=== PATIENT | female | born 1990 | race Caucasian/White ===

== ENCOUNTER 2018-10-20 00:25 | Emergency (ER) | payer SELFPAY ==
[2018-10-20 00:28] VITALS: BP 105/51; PULSE 92; RESP 18; TEMP 37.9; O2SAT 99; BMI 23.5
--- NOTE | 2018-10-20 01:07 | ED_ITS ---
HPI - URI/Sore Throat General Chief Complaint: Upper Respiratory Symptoms Stated Complaint: THROAT SWOLLEN/DIFF. BREATHING/FEVER Time Seen by Provider: 10/20/18 01:06 Source: patient Mode of arrival: ambulatory Limitations: no limitations History of Present Illness HPI Narrative: Patient is a 28-year-old female who is currently . She is not having any abdominal pain or vaginal bleeding. She is having a sore throat. And sinus congestion. This has been going on for the past day or so. Also having subjective fevers. No cough. Related Data Previous Rx's Medication Instructions Recorded amoxicillin-pot clavulanate 875 mg PO BID #20 tab 08/26/17 [Augmentin] Allergies Allergy/AdvReac Type Severity Reaction Status Date / Time No Known Drug Allergies Allergy Verified 10/20/18 01:32 Review of Systems ENT Ears, Nose, Mouth, and Throat: Reports change in voice, Reports sinus pressure and Reports sore throat Cardiovascular Denies chest pain Respiratory Denies cough Integumentary/Breasts Denies rash Hematologic/Lymphatic Denies easy bleeding and Denies easy bruising [facility] Medical History Healthy adult (Acute) Social History Smoking Status: Never smoker Social History Smoking Status: Never smoker Exam Initial Vital Signs Initial Vital Signs: Vital Signs Temperature 100.2 F H 10/20/18 00:28 Pulse Rate 92 H 10/20/18 00:28 Respiratory Rate 18 10/20/18 00:28 Blood Pressure 105/51 L 10/20/18 00:28 Pulse Oximetry 99 10/20/18 00:28 Const General: cooperative, well developed, well groomed and No acute distress Orientation: alert, awake and oriented x3 HENMT Head: normal to inspection and normocephalic Ears: TM's normal bilaterally Nose: external nose normal Face and sinus: normal facial exam Mouth: oral mucosae normal Throat: uvula midline and other (Exudates) Resp Effort & Inspection: normal respiratory effort Auscultation: clear to auscultation bilaterally Cardio Rate: regular rate Rhythm: regular rhythm Skin Lesions: no lesions Rashes: no rashes Neuro General: alert, awake and oriented x3 Extrem General: normal to inspection and capillary refill normal Course Orders Ordered: ED Orders 10/20/18 00:33 Strep Grp A by PCR Rapid Stat Discontinued Medications Penicillin G Benzathine (Bicillin L-A) 1,200,000 unit IM NOW ONE Stop: 10/20/18 01:33 Last Admin: 10/20/18 01:48 Dose: 1,200,000 unit Vital Signs - 8 hr 10/20/18 00:28 10/20/18 02:11 Temperature 100.2 F H Pulse Rate 92 H 93 H Respiratory Rate 18 18 Blood Pressure 105/51 L 100/58 L Pulse Oximetry 99 99 MDM - URI/Sore Throat Lab Data Attestation: I reviewed the patient's lab results. Lab Results 10/20/18 Range/Units 00:33 Group A Strep (PCR) Positive H MDM Narrative Medical decision making narrative: Patient is strep positive which is consistent with her symptoms. Gave her the option of oral antibiotics versus an intramuscular injection. She decided on an intramuscular injection. She is not in any respiratory distress. she is given return precautions and follow-up instructions. She expressed understanding and agreement with plan. Discharge Plan Departure Patient Disposition: Home Clinical Impression: Pharyngitis Qualifiers: Pharyngitis/tonsillitis etiology: streptococcus Qualified Code(s): J02.0 - Streptococcal pharyngitis Discharge Date/Time: 10/20/18 02:12 Interventions: ED Discharge Assessment Last Done: 10/20/18 02:11 Instructions: DI for Strep Throat Activity Restrictions/Additional Instructions: Continue to increase your fluid intake. Contact your primary doctor for a follow-up. Return to the emergency department for any new or worsening symptoms Prescriptions: No Action amoxicillin-pot clavulanate [Augmentin] 875 MG/125 MG tablet 875 mg PO BID Qty: 20 RF: 0
[2018-10-20 01:21] LABS: Strep Grp A by PCR Rapid Positive
[2018-10-20] MEDS: PENICILLIN G BENZATHINE 1,200,000 UNIT/2 ML SYRINGE 1200000 UNIT IM (01:48)
[2018-10-20 02:11] VITALS: BP 100/58; PULSE 93; RESP 18; O2SAT 99
== END 2018-10-20 02:12 | disposition home or self-care (01) ==
PROVIDERS: Emergency Provider Emergency Medicine
DX: J02.0 Streptococcal pharyngitis (principal)
CPT/HCPCS: 87651; 96372; 99282; 99283; J0561

== ENCOUNTER → 2023-07-13 09:01 | Outpatient (CLI) | payer SELFPAY ==
--- NOTE | 2023-07-13 09:06 | DI.US.S_ITS ---
PROCEDURE: US OB >= 14 WEEKS FETUS INDICATIONS: ANATOMY SCAN OUTSIDE/PRIOR DATING DATA: Last menstrual period (LMP): On no. LMP-based estimated date of delivery (MEGAN): Unknown. First dating scan (date and location): Unknown. Estimated date of delivery (MEGAN) from first dating scan: 11/26/2023. The calculations are made using the MEGAN of 11/26/2023. TECHNIQUE: Real-time scanning was performed of the fetus, with image documentation and biometric measurements. COMPARISON: None. FINDINGS: General: A single living intrauterine gestation is present. Presentation: Transverse. Placenta: Placental position is posterior , without previa. Amniotic fluid index: 14 cm, normal range is 5-24 cm. Single deepest vertical pocket is 5 point cm. heart rate: 130 beats per minute. Maternal cervical canal: 0.3 cm long. Normal lower limit is 2.5 cm. biometrics: Biparietal diameter: 0.7 cm 20 weeks 2 days Head circumference: 18.1 cm 20 weeks 4 days Abdominal circumference: 16.7 cm 21 weeks 5 days Femur length: 3.6 cm 21 weeks 2 days Clinically estimated gestational age: 20 weeks 4 days Composite gestational age from present scan: 21 weeks 0 days Estimated weight and percentile: 419 g, 86 Anatomic survey: Neuro: Ventricles are non-dilated at less than 10 mm. Cisterna magna is normal at 3-11 mm. Cerebellum is normal in size and morphology. Nuchal skin fold: Normal at less than 6 mm between 14-21 weeks gestational age. Face: Nose and lips, facial profile are normal. Spine: No evidence for spina bifida. Heart: 4-chambered heart is present, with normal ventricular outflow tracts. Diaphragm: Diaphragm is intact. Stomach: Left-sided stomach is present. Kidneys: No hydronephrosis. Normal is less than 5 mm in 2nd trimester, less than 7 mm in 3rd trimester. Cord: 3-vessel cord has orthotopic insertion. Bladder: Normal in size. Extremities: All 4 extremities identified. IMPRESSION: Single live intrauterine with ultrasound gestational age today 21 weeks 0 days. Anatomy is within normal limits. We strive to produce accurate, complete, and clear reports of imaging services. To assist us in improving patient care, this report was composed using standard report templates and voice recognition software. Therefore, it may contain abnormal punctuation, insertions and/or omissions. Occasional wrong-word or sound-alike substitutions may occur. Though we review the report and make efforts to correct it, we do recommend that the report be read carefully in proper context to recognize any text inaccuracies. Dictated by: Saumya Jin M.D. on 07/13/2023 at 21:02 Approved by: Saumya Jin M.D. on 07/13/2023 at 21:04
== END ==
LOC: US 09:05
PROVIDERS: Referring Provider Midwife; Visit Provider Midwife
DX: Z34.82 Encounter for supervision of other normal pregnancy, second trimester (principal); Z3A.21 21 weeks gestation of pregnancy
CPT/HCPCS: 76811

== ENCOUNTER → 2024-11-15 12:00 | Outpatient (CLI) | payer SELFPAY ==
--- NOTE | 2024-11-15 12:03 | DI.US.S_ITS ---
PROCEDURE: US OB >= 14 WEEKS FETUS INDICATIONS: 20 WEEK ANATOMY SCAN OUTSIDE/PRIOR DATING DATA: Last menstrual period (LMP): 06/02/24. LMP-based estimated date of delivery (MEGAN): 03/09/25. First dating scan (date and location): This study. Estimated date of delivery (MEGAN) from first dating scan: 03/10/25. TECHNIQUE: Real-time scanning was performed of the fetus, with image documentation and biometric measurements. Endovaginal scanning: Not needed COMPARISON: [facility], OB >= 14 WEEKS FETUS, 07/13/2023, 9:19. FINDINGS: General: A single living intrauterine gestation is present. Presentation: Transverse head left. Placenta: Placental position is posterior , without previa. Amniotic fluid index: 16.4 cm, normal range is 5-24 cm. Single deepest vertical pocket is 4.9 cm. heart rate: 167 beats per minute. Maternal cervical canal: 4.7 cm long. Normal lower limit is 2.5 cm. biometrics: Biparietal diameter: 5.7 cm, 23 weeks 3 days Head circumference: 21.8 cm, 23 weeks 6 days Abdominal circumference: 19.1 cm, 23 weeks 6 days Femur length: 4.1 cm, 23 weeks 1 day Clinically estimated gestational age: 23 weeks 5 days Composite gestational age from present scan: 23 weeks 4 days Estimated weight and percentile: 605 g, 34th percentile. Anatomic survey: Neuro: Ventricles are non-dilated at less than 10 mm. Cisterna magna is normal at 3-11 mm. Cerebellum is normal in size and morphology. Nuchal skin fold: Normal at less than 6 mm between 14-21 weeks gestational age. Face: Nose and lips, facial profile are normal. Spine: No evidence for spina bifida. Heart: 4-chambered heart is present, with normal ventricular outflow tracts, 3 mm left ventricular echogenic focus incidentally noted. Diaphragm: Diaphragm is intact. Stomach: Left-sided stomach is present. Kidneys: No hydronephrosis. Normal is less than 5 mm in 2nd trimester, less than 7 mm in 3rd trimester. Cord: 3-vessel cord has orthotopic insertion. Bladder: Normal in size. Extremities: All 4 extremities identified. IMPRESSION: Single living intrauterine gestation with no specific anomaly found and the delivery date is projected to be centered on 03/10/25. Normal amniotic fluid volume, normal weight percentile. We strive to produce accurate, complete, and clear reports of imaging services. To assist us in improving patient care, this report was composed using standard report templates and voice recognition software. Therefore, it may contain abnormal punctuation, insertions and/or omissions. Occasional wrong-word or sound-alike substitutions may occur. Though we review the report and make efforts to correct it, we do recommend that the report be read carefully in proper context to recognize any text inaccuracies. Dictated by: Hernán Bland M.D. on 11/15/2024 at 16:19 Approved by: Hernán Bland M.D. on 11/15/2024 at 16:24
== END ==
PROVIDERS: PCP Nurse Practitioner Family; Referring Provider Midwife; Visit Provider Midwife
DX: Z34.82 Encounter for supervision of other normal pregnancy, second trimester (principal); Z3A.23 23 weeks gestation of pregnancy
CPT/HCPCS: 76811